=== PATIENT | male | born 1990 | race Caucasian/White ===

== ENCOUNTER 2017-10-30 16:04 | Emergency (ER) | payer OTHER ==
[~2017-10-30] VITALS: Ht 175.3 cm; Wt 106.0 kg
[2017-10-30 17:40] VITALS: BP 141/84
== END 2017-10-30 17:40 | disposition home or self-care (01) | DRG 951 ==
LOC: ED 16:04
DX: Z77.098 Contact with and (suspected) exposure to other hazardous, chiefly nonmedicinal, chemicals (principal); Y92.89 Other specified places as the place of occurrence of the external cause

== ENCOUNTER 2020-07-23 17:51 | Inpatient (IN) | payer OTHER ==
[~2020-07-23] VITALS: Ht 175.3 cm; Wt 114.0 kg
--- NOTE | 2020-07-23 17:54 | NUR ---
Pt to room # 13 via W/C for bedside triage
[2020-07-23 18:56] LABS: HEMATOCRIT 43.7 % (39.0-50.0); HEMOGLOBIN 15.1 g/dl (14.0-18.0); IMMATURE GRANULOCYTES 0.1 % (0.0-5.0); MEAN CELL VOLUME 85.7 fL CALC (80.0-100.0); MEAN CORPUSCULAR HGB 29.6 pG CALC (26.0-32.0); MEAN CORPUSCULAR HGB CONC 34.6 g/dL CAL (32.0-36.0); NEUT# 4.75 thou/uL (1.82-7.42); RED BLOOD COUNT 5.1 mill/uL (4.70-6.10); RED CELL DISTRI WIDTH 11.9 % (11.5-15.5)
[2020-07-23 19:18] LABS: ALBUMIN 4.1 g/dL (3.2-5.0); ALKALINE PHOSPHATASE 88 u/l (38-126); ANION GAP 12 (6-22 (CALC)); BILIRUBIN, TOTAL 0.6 mg/dL (0.0-1.4); BUN 12 mg/dL (9-20); BUN/CREATININE RATIO 10 (12-20 (CALC)); C-REACTIVE PROTEIN 7.7 mg/dL (0-0.9); CARBON DIOXIDE 33 mmol/l (22-30); CHLORIDE 89 mmol/l (95-108); CREATININE 1.1 mg/dL (0.7-1.3); GFR > 60 ML/MIN (>=60 (CALC)); GFR FOR AFR.AMER. > 60 ML/MIN (>=60 (CALC)); POTASSIUM 3.5 mmol/l (3.5-5.1); SGOT/AST 33 u/l (17-59); SODIUM 130 mmol/l (137-146); TOTAL PROTEIN 8.1 g/dL (6.3-8.2)
--- NOTE | 2020-07-23 19:27 | NUR ---
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
--- NOTE | 2020-07-23 20:40 | NUR ---
WP/D SKIN SR NO ECTOPY VOIDS 200CC AMANDA URINE.DENIOES SOB NO COUGH NO CONGESTION
--- NOTE | 2020-07-23 21:49 | NUR ---
PT TRANSPORTED TO [place] [facility] IN STABLE CONDITION
[2020-07-23 22:00] VITALS: BP 127/78
--- NOTE | 2020-07-23 22:00 | NUR ---
PT ARRIVED TO FLOOR VIA STRETCHER ACCOMPAINED BY ER STAFF. PT ALERT AND ORIENTED X4. AMBULATORY WITH STEADY GAIT TO BED. NO APPARENT DISTRESS NOTED. PT DENIES ANY PAIN OR SOB. O2 @ 2L/M VIA NC. RESPIRATIONS EVEN AND UNLABORED. HOMICIDE DETECTIVE IN PLACE. IV SITE APPEARS HEALTHY, IVF INITIATED. SKIN INTACT. PT ORIENTED TO ROOM AND CALL LIGHT SYSTEM. DISCUSSED POC AND SAFETY PRECAUTIONS. PT VERBALIZED UNDERSTANDING. INVENTORY SHEET COMPLETED, PT WISHES TO KEEP [facility] WITH $190 [employer] IN HIS POSSESSION, DECLINED SENDING TO [facility]. PT HAS NO CURRENT WANTS OR NEEDS. FRESH ICE WATER PROVIDED. CALL LIGHT WITHIN REACH. WILL CONTINUE TO MONITOR.
--- NOTE | 2020-07-23 23:50 | NUR ---
PT RESTING IN BED. NO APPARENT DISTRESS NOTED. PT DENIES ANY PAIN OR SOB AT THIS TIME. O2 @ 2L/M VIA NC. CALL LIGHT WITHIN REACH. WILL CONTINUE TO MONITOR.
[2020-07-24 00:04] VITALS: BP 115/70
[2020-07-24 03:40] VITALS: BP 104/73
--- NOTE | 2020-07-24 03:56 | NUR ---
PT RESTING IN BED WATCHING TV. NO APPARENT DISTRESS NOTED. PT DENIES ANY PAIN OR DISCOMFORT. NO CURRENT WANTS OR NEEDS. CALL LIGHT WITHIN REACH. WILL CONTINUE TO MONITOR.
[2020-07-24 04:53] LABS: URINE BILIRUBIN - DIPSTICK NEGATIVE (NEGATIVE); URINE BLOOD DIPSTICK NEGATIVE (NEGATIVE); URINE CLARITY CLEAR; URINE COLOR YELLOW; URINE GLUCOSE - DIPSTICK NEGATIVE (NEGATIVE); URINE KETONE 15 mg/dL (NEGATIVE); URINE LEUK ESTERASE NEGATIVE (Negative); URINE NITRITE - DIPSTICK NEGATIVE (Negative); URINE PROTEIN - DIPSTICK NEGATIVE (NEG-TRACE); URINE UROBILINOGEN - DIPSTICK 0.2 E.U./dL (0.2)
[2020-07-24 05:22] LABS: HEMATOCRIT 47.5 % (39.0-50.0); HEMOGLOBIN 16.3 g/dl (14.0-18.0); IMMATURE GRANULOCYTES 1.1 % (0.0-5.0); MEAN CELL VOLUME 87.3 fL CALC (80.0-100.0); MEAN CORPUSCULAR HGB CONC 34.3 g/dL CAL (32.0-36.0); NEUT# 3.29 thou/uL (1.82-7.42); RED BLOOD COUNT 5.44 mill/uL (4.70-6.10); RED CELL DISTRI WIDTH 12.1 % (11.5-15.5)
[2020-07-24 05:26] LABS: BUN 12 mg/dL (9-20); BUN/CREATININE RATIO 15 (12-20 (CALC)); C-REACTIVE PROTEIN 7.3 mg/dL (0-0.9); CHLORIDE 96 mmol/l (95-108); CREATININE 0.8 mg/dL (0.7-1.3); GFR > 60 ML/MIN (>=60 (CALC)); GFR FOR AFR.AMER. > 60 ML/MIN (>=60 (CALC))
[2020-07-24 05:38] LABS: ANION GAP 19 (6-22 (CALC)); CARBON DIOXIDE 26 mmol/l (22-30); POTASSIUM 4.4 mmol/l (3.5-5.1); SODIUM 137 mmol/l (137-146)
[2020-07-24 08:13] VITALS: BP 112/72
--- NOTE | 2020-07-24 08:13 | NUR ---
RECIEVED REPORT FROM HILLARY TORRES. PT RESTING IN HIGH FOLWERS POSITION UPON ENTERING ROOM.INTRODUCED SELF TO PT AND DISCUSSED POC. PT IS A/O X3. ASSESSMENT AND VITALS COMPLETED. BP 112/72, HR 49, O2 96% ON 2L NC. RESPIRATIONS ARE EVEN AND UNLABORED WITH NO SIGNS OF DISTRESS NOTED. LUNG SOUNDS ARE CLEAR. HEART RHYTHM IS NORMAL WITH TELE IN PLACE. BOWEL SOUNDS ARE ACTIVE IN ALL QUADRANTS, LAST REPORTED BM 07/24/2020. RADIAL AND PEDAL PULSES ARE STRONG WITH NORMAL CAPILLARY REFILL.IVF RUNNING PER ORDER, SITE APPEARS HEALTHY AND PATENT. PT DENIES OF ANY PAIN OR DISCMFORTS AT THIS TIME. ALL SAFTEY PRECAUTIONS ARE IN PLACE WITH CALL LIGHT IN REACH. ISOLATION PRECAUTIONS ENFORCED. WILL CONTINUE TO MONITOR
[2020-07-24 10:40] VITALS: BP 109/68
--- NOTE | 2020-07-24 11:15 | NUR ---
DR MOSES AT BEDSIDE DISCUSSIN GPOC
--- NOTE | 2020-07-24 12:23 | NUR ---
PT RESTING IN SEMI FOWLERS POSITION UPON ENTERING ROOM. PT IS A/O X3. RESPIRATIONS ARE EVEN AND UNLABORED WITH NO SIGNS OF DISTRESS NOTED. PT DENIES ANY PAIN OR DISCOMFORTS AT THIS TIME. ALL SAFTEY PRECAUTIONS REMAINS IN PLACE WITH CALL LIGHT IN REACH. ALL SAFETY AND ISOLATION PRECAUTIONS REMAINS IN PLACE WITH CALL LIGHT IN REACH. WILL CONTINUE TO MONITOR
--- NOTE | 2020-07-24 15:18 | NUR ---
ER CALLED STATING PT HR WAS 39. PT RESTING IN SEMI FOLWERS POSITION UPON ENTERING ROOM. RESPIRATIONS AREE EVEN AND UNLABORED WITH NO SIGNS OF DISTRESS NOTED. NEW ELECTORDES APPLIED. ALL SFAETY AND ISOLATION PRECAUTIONS ARE IN PLACE WIHT CALL LIGHT IN REACH. WILL CONTINUE TO MONITOR
[2020-07-24 15:30] VITALS: BP 116/69
--- NOTE | 2020-07-24 16:40 | NUR ---
PT RESTING IN SEMI FOWLERS POSITION ON PHONE UPON ENTERING ROOM. PT REMAINS A/OX3. RESPIRATIONS ARE EVEN AND UNLABORED WITH NO SIGNS OF DISTRESS NOTED. PT DENIES OF ANY PAINS OR DISCOMFORTS AT THIS TIME. ALL SAFETY PRECAUTIONS ARE IN PLACE WITH CALL LIGHT IN REACH. WILL CONTINUE TO MONITOR.
--- NOTE | 2020-07-24 19:01 | NUR ---
REPORT FROM CODY THORNTON. ASSUMED PT CARE.
[2020-07-24 19:10] VITALS: BP 113/68
--- NOTE | 2020-07-24 21:10 | NUR ---
PT MEDICATED ORDERED. EDUCATION PROVIDED ON IV ABT AND LOVENOX INJ. SNACK PROVIDED. NO APPARENT DISTRESS NOTED. SCRIPT ARTIST IN PLACE. IV SITE APPEARS HEALTHY. O2 @ 2L/M VIA NC. CALL LIGHT WITHIN REACH. WILL CONTINUE TO MONITOR.
[2020-07-25] VITALS (7 sets, daily range): BP systolic 100–149; BP diastolic 61–76
--- NOTE | 2020-07-25 00:14 | NUR ---
LEADS NO ABLE TO ADHERE TO CHEST DUE TO HAIR. PT REQUEST HAIR BE REMOVED VIA [employer]. GIRL FRIDAY SHAVED CHEST IN PLACES WHERE ELECTRODES ARE PLACED AND REAPPLIED ELECTRODES AT THIS TIME. PT TOLERATED WELL. PT DENIES ANY OTHER CURRENT WANTS OR NEEDS. NO APPARENT DISTRESS NOTED. CALL LIGHT WITHIN REACH. WILL CONTINUE TO MONITOR.
--- NOTE | 2020-07-25 04:03 | NUR ---
TIMBER FRAMER HELPER NOTIFIED RN MDS OF HR 38. UPON ENTERING PTS ROOM, PT NOTED SLEEPING SOUNDLY, SNORING. PT WAKES EASILY. VSS. WITH HR 57. PT DENIES ANY PAIN, DIZZINESS, OR WEAKNESS. NO APPARENT S/S OF LOW HR. PT DENIES HAVING ANY HX OF SLEEP APNEA OR LOW HR. PT ALERT AND ORIENTED X4. NO APPARENT DISTRESS NOTED. BURLAPPER PHYSICIAN NOTIFIED. CALL LIGHT WITHIN REACH. WILL CONTINUE TO MONITOR.
--- NOTE | 2020-07-25 08:50 | NUR ---
ASSESSMENT IS COMPLETED: IV SITE IS FREE FROM REDNESS OR EDEMA. HR IS REG,PULSES ARE STRONG X4, ABD IS SOFT WITH ACTIVE BS,. BREATH SOUNDS ARE CLEAR,BILATERALLY. NO C/O SOB. TELE MONITOR IN PLACE. CONTINUE TO [place]E AND MONITOR.
--- NOTE | 2020-07-25 12:11 | NUR ---
PT HAD O2 ON AND THEN TOOK OFF FOR 2 MINUTES SATS 97%. ENCOURAGED TO KEEP OFF AND INFORM WHEN HE IS SOB
--- NOTE | 2020-07-25 12:20 | NUR ---
PT IS SITTING UP IN BED WITH NO DISTRESS NOTED. IV SITE IS FREE FROM REDNESS OR EDEMA.
--- NOTE | 2020-07-25 19:00 | NUR ---
REPORT RECEIVED FROM Veronica GUTIERREZ LPN, CARE OF PT ASSUMED AT THIS TIME.
--- NOTE | 2020-07-25 21:00 | NUR ---
PT LAYING IN BED, WATCHING TV. PHYSICAL ASSESMENT COMPLETE. SCHEDULED MEDICATIONS ADMINISTERED, SEE E-MAR. PLAN OF CARE REVIEWED, PT VERBALIZES UNDERSTANDING AND DENIES QUESTIONS. PT DENIES NEEDS AT THIS TIME. CALL [place]VERTON WITHIN REACH. AGREES TO CALL PRN.
--- NOTE | 2020-07-26 01:00 | NUR ---
PT LAYING IN BED WITH EYES CLOSED, RESPIRATIONS REGULAR AND UNLABORED, NO APPARENT DISTRESS, APPEARS TO BE SLEEPING COMFORTABLY. CALL OVERTON REMAINS WITHIN REACH.
[2020-07-26 04:12] VITALS: BP 110/76
[2020-07-26 05:18] LABS: IMMATURE GRANULOCYTES 0.3 % (0.0-5.0); MEAN CELL VOLUME 87.8 fL CALC (80.0-100.0); MEAN CORPUSCULAR HGB 29.8 pG CALC (26.0-32.0); MEAN CORPUSCULAR HGB CONC 33.9 g/dL CAL (32.0-36.0); NEUT# 4.82 thou/uL (1.82-7.42); RED BLOOD COUNT 4.33 mill/uL (4.70-6.10); RED CELL DISTRI WIDTH 12.1 % (11.5-15.5)
[2020-07-26 05:19] LABS: HEMOGLOBIN 12.9 g/dl (14.0-18.0)
[2020-07-26 05:45] LABS: ALKALINE PHOSPHATASE 57 u/l (38-126); ANION GAP 6 (6-22 (CALC)); BUN 14 mg/dL (9-20); BUN/CREATININE RATIO 18 (12-20 (CALC)); C-REACTIVE PROTEIN 2.3 mg/dL (0-0.9); CARBON DIOXIDE 28 mmol/l (22-30); CHLORIDE 107 mmol/l (95-108); CREATININE 0.8 mg/dL (0.7-1.3); GFR > 60 ML/MIN (>=60 (CALC)); GFR FOR AFR.AMER. > 60 ML/MIN (>=60 (CALC)); SGOT/AST 23 u/l (17-59); SODIUM 137 mmol/l (137-146)
[2020-07-26 05:46] LABS: BILIRUBIN, TOTAL 0.2 mg/dL (0.0-1.4)
--- NOTE | 2020-07-26 06:07 | NUR ---
PT RESTING IN BED. PT DENIES NEEDS AT THIS TIME. CALL [place]VERTON WITHIN REACH, AGREES TO CALL PRN.
[2020-07-26 08:40] VITALS: BP 116/82
--- NOTE | 2020-07-26 08:40 | NUR ---
PT RESTING IN BED, ALERT AND ORIETNED. RESPIRATIONS ARE EVEN AND UNLABORED ON RA, O2 AT BEDSIDE PRN. LUNGS SOUND DIMINISHED. PEDAL PULSES ARE STRONG. PT DENIES ANY PAIN OR DISCOMFORT AT THIS TIME. SAFETY PRECAUTIONS IN PLACE. WILL CONTINUE TO MONITOR.
[2020-07-26 10:50] VITALS: BP 112/72
--- NOTE | 2020-07-26 12:05 | NUR ---
PT RESTING IN BED, NO S/S OF DISTRESS AT THIS TIME. SAFETY PRECAUTIONS IN PLACE. WILL CONTINUE TO MONITOR.
[2020-07-26 14:30] VITALS: BP 119/78
--- NOTE | 2020-07-26 16:11 | NUR ---
PT RESTING IN BED. NO S/S OR SYMPTOMS OF DISTRESS AT THIS TIME. SAFETY PRECAUTIONS IN PLACE. WILL CONTINUE TO MONTIOR.
[2020-07-26 20:15] VITALS: BP 111/79
--- NOTE | 2020-07-26 20:50 | NUR ---
PATIENT IS ALERT AND ORIENTED X 3. ABLE TO MAKE NEEDS KNOWN. RESPIRATION EASY. DENIES PAIN. VAD LAC INFUSING IVF ORDERED. SKIN WARM AND DRY. BED IN LOW POSITION. CALL LIGHT WITHIN REACH.
--- NOTE | 2020-07-27 | NUR ---
PATIENT IS ALERT AND ORIENTED X 3. ABLE TO MAKE NEEDS KNOWN. RESPIRATIONS EASY. NO COMPLAINTS OF PAIN. COMPLIANT WITH MEDICATIONS. NO ACUTE DISTRESS NOTED. BED IN LOW POSITION. CALL LIGHT WITHIN REACH.
[2020-07-27 01:16] VITALS: BP 135/89
[2020-07-27 04:00] VITALS: BP 131/92
--- NOTE | 2020-07-27 04:00 | NUR ---
RESTING WITH EYES CLOSED. RESPIRATION EASY. BED IN LOW POSITION. CALL LIGHT WITHIN REACH. VAD TO LAC DC'D DUE TO LEAKING AND BURNING AT 0130. TOLERATED WELL.
--- NOTE | 2020-07-27 06:59 | NUR ---
REPORT RECEIVED FROM CARLA GARCÍA. PT RESTING IN BED, NO S/S OF DISTRESS AT THIS TIME. SAFETY PRECAUTIONS IN PLACE. WILL CONTINUE TO MONITOR.
[2020-07-27 08:10] VITALS: BP 112/75
[2020-07-27 11:23] VITALS: BP 103/55
[2020-07-27] MEDS ORDERED: ZITHROMAX250 MG PO (11:37)
[2020-07-27] MEDS ORDERED: DEXAMETHASON6 MG PO (11:37)
--- NOTE | 2020-07-27 14:56 | NUR ---
PT PROVIDED WITH DISCHARGE PACKET. IV #22 RFA REMOVED, CATHETER INTACT. PT DENIES ANY QUESTIONS OR CONCERNS AT THIS TIME.
--- NOTE | 2020-07-27 15:00 | NUR ---
Discharge instructions given. Patient verbalizes understanding of same. Discharged in stable condition via Ambulatory to Home with staff. All belongings sent with pt.
== END 2020-07-27 14:59 | disposition home or self-care (01) | DRG 177 ==
LOC: ED 17:51 → ED-I 20:10 → ED 20:56 → MS2 20:57
PROVIDERS: Nurse Practitioner; ADMIT Internal Medicine; ATTEND Internal Medicine
DX: U07.1 COVID-19 (principal); J12.89 Other viral pneumonia; E87.1 Hypo-osmolality and hyponatremia; R09.02 Hypoxemia; R00.1 Bradycardia, unspecified; G47.30 Sleep apnea, unspecified
CPT/HCPCS: J1650